=== PATIENT | female | born 1990 | race Caucasian/White ===

== ENCOUNTER → 2019-11-04 | Outpatient (CLI) | payer OTHER ==
[~2019-11-04] MED LIST: BCP; BIRTH CONTROL; DOXY100 PO; FAMO40 PO; HYDACE5 PO; HYDACE5325 PO; IBUP800 PO; METR500 PO; MULVITMINE PO; NAPR500 PO; NEOCOLOTSU BOTHEARS; NITR100 PO; ONDA4 PO; ONDA4ODT MM; PENVK250 PO; PHENA100 PO; PROM25 PO; PROM25S PR; RXHYD5325 PO; RXHYDACE PO; RXOXYACE PO; SPRINTEC; SULTRIDS PO; TRAM50 PO; Zofran4 MG PO; [UNRECOGNIZED DRUG - OTHER]
== END | disposition home or self-care (01) ==
LOC: LAB EV 18:34 → LAB SHORT 18:34
DX: N12 Tubulo-interstitial nephritis, not specified as acute or chronic (principal)
CPT/HCPCS: 87077; 87086; 87186

== ENCOUNTER 2021-06-21 09:59 | Emergency (ER) | payer OTHER ==
[~2021-06-21] VITALS: Ht 152.4 cm; Wt 54.4 kg
[2021-06-21] MEDS ORDERED: KETO10 PO (12:10)
== END 2021-06-21 12:15 | disposition home or self-care (01) ==
LOC: ER 09:59
DX: S50.02XA Contusion of left elbow, initial encounter (principal); W18.09XA Striking against other object with subsequent fall, initial encounter; F17.200 Nicotine dependence, unspecified, uncomplicated; Z88.7 Allergy status to serum and vaccine
CPT/HCPCS: 29105; 73080; 99283-25

== ENCOUNTER → 2022-07-10 | Outpatient (CLI) | payer OTHER ==
[~2022-07-10] MED LIST changes: +KETO10 PO
== END | disposition home or self-care (01) ==
LOC: LAB SHORT 14:00
DX: N39.0 Urinary tract infection, site not specified (principal)
CPT/HCPCS: 87077; 87086; 87186

== ENCOUNTER 2024-07-31 14:33 | Emergency (ER) | payer OTHER ==
[~2024-07-31] VITALS: Ht 152.4 cm; Wt 52.2 kg
[~2024-07-31 14:33] MED LIST changes: +CEPH500 PO; +Norco 5-325 Ta1 EACH PO; +POTA20PAC PO
[2024-07-31 14:45] VITALS: BP 108/93
[2024-07-31] MEDS ORDERED: Tetanus and Diphtheria Toxoid 0.5 ML INJ IM ONE (14:45)
== END 2024-07-31 15:11 ==
LOC: ER 14:33
DX: S61.207D Unspecified open wound of left little finger without damage to nail, subsequent encounter (principal); X58.XXXD Exposure to other specified factors, subsequent encounter; Z23 Encounter for immunization
CPT/HCPCS: 90471; 90714; 99282-25

== ENCOUNTER 2025-05-30 18:36 | Emergency (ER) | payer OTHER ==
[~2025-05-30] VITALS: Ht 152.4 cm; Wt 48.5 kg
[2025-05-30] MEDS ORDERED: NS 1,000 ML IV SCH (19:00)
[2025-05-30] MEDS ORDERED: Ondansetron HCl 2 MG / ML 2ML Vial IV ONE (19:00)
[2025-05-30 19:33] LABS: BASOPHILS ABSOLUTE AUTO 0.06 K/mm3 (0.00-0.23); BASOPHILS PERCENT AUTO 1 % (0-2); EOSINOPHILS ABSOLUTE AUTO 0.08 K/mm3 (0.00-0.68); EOSINOPHILS PERCENT AUTO 1 % (0-6); Hematocrit 42.7 % (33.0-51.0); Hemoglobin 14.6 g/dL (11.5-16.0); IMMATURE GRAN ABSOLUTE AUTO 0.05 K/mm3 (0.00-0.10); IMMATURE GRAN PERCENT AUTO 1 % (0-1); LYMPHOCYTES ABSOLUTE AUTO 1.85 K/mm3 (0.84-5.20); LYMPHOCYTES PERCENT AUTO 18 % (21-46); MONOCYTES ABSOLUTE AUTO 0.62 K/mm3 (0.16-1.47); MONOCYTES PERCENT AUTO 6 % (4-13); Mean Corpuscular HGB Conc 34.2 g/dL (31.5-36.5); Mean Corpuscular Volume 92 fL (80-100); NEUTROPHILS ABSOLUTE AUTO 7.76 K/mm3 (1.96-9.15); NEUTROPHILS PERCENT AUTO 74 % (41-73); NRBC ABSOLUTE 0.00 K/mm3 (0.00-0.02); NRBC Auto 0.0 /100 WBC (0.0-0.2); Platelet Count 268 K/mm3 (150-400); RDW Coefficient Variation 12.8 % (11.7-14.2); RDW Standard Deviation 43.1 fL (35.1-46.3)
[2025-05-30 19:54] LABS: Alanine Aminotransfer (ALT/SGP 21.0 U/L (12-78); Albumin, Blood 4.8 g/dL (3.4-5.0); Albumin/Globulin Ratio 1.4 (0.8-1.8); Anion Gap 8.0 mmol/L (3-11); Aspartate Aminotrans (AST/SGOT 12.0 U/L (12-37); Bilirubin, Total 0.7 mg/dL (0.1-1.0); Blood Urea Nitrogen 26.0 mg/dL (8-24); CO2, Blood 27.0 mmol/L (21-32); Calcium, Blood 9.6 mg/dL (8.5-10.1); Chloride, Blood 103.0 mmol/L (98-108); Creatinine, Blood 0.83 mg/dL (0.40-1.00); Globulin, Blood 3.4 g/dL (2.2-4.0); Glucose, Blood 123.0 mg/dL (70-99); Potassium, Blood 3.4 mmol/L (3.5-5.5); Sodium, Blood 135.0 mmol/L (136-145); Total Protein, Blood 8.2 g/dL (6.4-8.2)
[2025-05-30] MEDS ORDERED: Ondansetron HCl 2 MG / ML 2ML Vial ONE (22:20)
[2025-05-31 01:00] VITALS: BP 99/74
[2025-05-31] MEDS ORDERED: NS 1,000 ML IV SCH (01:55)
[2025-05-31] MEDS ORDERED: Potassium Chloride 10 Meq Tablet SA PO ONE (01:55)
[2025-05-31 02:12] LABS: Magnesium, Blood 2.4 mg/dL (1.6-2.4); Phosphorus, Blood 4.1 mg/dL (2.5-4.9)
== END 2025-05-31 02:15 | disposition left against medical advice (07) ==
LOC: ER 18:36
PROVIDERS: Student in an Organized Health Care Education/Training Program
DX: E86.0 Dehydration (principal); R11.2 Nausea with vomiting, unspecified; R10.10 Upper abdominal pain, unspecified; F17.200 Nicotine dependence, unspecified, uncomplicated; Z53.29 Procedure and treatment not carried out because of patient's decision for other reasons; Z88.7 Allergy status to serum and vaccine; Z79.899 Other long term (current) drug therapy; Z59.89 Other problems related to housing and economic circumstances
CPT/HCPCS: 74022; 80053; 83690; 83735; 84100; 84703; 85025; 96361; 96374; 99284-25; A9270; J2405; J7030